=== PATIENT | male | born 1970 | race Caucasian/White ===

== ENCOUNTER 2016-10-06 17:12 | Emergency (ER) | payer MEDICAID ==
[2016-10-06 17:29] VITALS: PULSE 101
--- NOTE | 2016-10-06 17:48 | EDPHY ---
H & P Stated Complaint: 2 weeks of sore throat. getting worse - Personal History Current Tetanus/Diphtheria Vaccine: Yes Current Tetanus Diphtheria and Acellular Pertussis (TDAP): Yes - Medical/Surgical History Hx Asthma: Yes Hx Chronic Respiratory Disease: No Hx Diabetes: No Hx Cardiac Disease: No Hx Renal Disease: No Hx Cirrhosis: No Hx HIV/AIDS: Yes Hx Splenectomy or Spleen Trauma: No Other PMH: pmh:hiv, htn, asthma, liver fibrosis stage 2,. psh:choley, dental, tonsels - Social History Smoking Status: Never smoked Time Seen by Provider: 10/06/16 17:47 HPI/ROS: CHIEF COMPLAINT: Sore throat x2 weeks HISTORY OF PRESENT ILLNESS: 46-year-old HIV-positive male with undetectable viral load, recently moved from [place] to [place], complaining of sore throat x4 days. He notes antecedent nasal congestion and sore throat which he attributed to seasonal allergies/rhinitis and postnasal drainage. This has resolved however new symptoms started on . He has had no change in voice, no nuchal rigidity, no chest pain, no abdominal pain, no flank pain, no fever or chills, no dysphagia, no headache, no flu flu-like symptoms PRIMARY CARE PROVIDER: not established yet, will likely be following up the [facility] REVIEW OF SYSTEMS: A ten point review of systems was performed and is negative with the exception of the items mentioned in the HPI PAST MEDICAL & SURGICAL HISTORY: HIV positive, undetectable viral load SOCIAL HISTORY: Nonsmoker PHYSICAL EXAM (Prior to examination, patient consented to physical exam, hands were washed and my usual and customary physical exam procedures followed) 1) GENERAL: Well-developed, well-nourished, alert and oriented. Appears to be in no acute distress. Smiling, normal voice 2) HEAD: Normocephalic, atraumatic 3) HEENT: Pupils equal, round, reactive to light bilaterally. Sclera anicteric. Nasopharynx, oropharynx, clear, no lesions. Posterior oropharyngeal erythema with symmetrical non enlarged tonsils, no exudate. No hot potato voice. No trismus no drooling. no lesions. No thrush. Ears bilaterally with normal tympanic membranes. 4) NECK: Full range of motion, no meningeal signs. No submandibular or cervical adenopathy. 5) LUNGS: Clear auscultation bilaterally, no wheezes, no rhonchi, no retractions. 6) HEART: Regular rate and rhythm, no murmur, no heave, no gallop. 7) ABDOMEN: No guarding, no rebound, no focal tenderness, no splenomegaly , 8) MUSCULOSKELETAL: No peripheral edema or discoloration. 9) BACK: No CVA tenderness 10) SKIN: No rash, no petechiae. 11) Psychiatric: Patient is oriented X 3, there is no agitation. DIFFERENTIAL DIAGNOSIS: in no particular include but limited to strep pharyngitis, viral pharyngitis, postnasal drainage, peritonsillar abscess, retropharyngeal abscess, meningitis , mononucleosis (Marcus Dela Cruz) Constitutional: Initial Vital Signs Temperature (C) 36.5 C 10/06/16 17:25 Heart Rate 101 H 10/06/16 17:25 Respiratory Rate 16 10/06/16 17:25 Blood Pressure 142/101 H 10/06/16 17:25 O2 Sat (%) 96 10/06/16 17:25 O2 Delivery Mode Room Air Allergies/Adverse Reactions: Penicillins Allergy (Verified 10/06/16 17:29) Home Medications: Medication Instructions Recorded AZITHROMYCIN [Z-PACK] 500 mg PO DAILY #5 10/06/16 Emtricitab/Rilpiviri/Tenof Ala 1 each PO 10/06/16 [Odefsey Tablet] Lamotrigine 10/06/16 Lisinopril 10/06/16 Wellbutrin 100mg (*) 10/06/16 Medical Decision Making ED Course/Re-evaluation: This this is HIV positive undetectable viral load patient appears well, he has no evidence of thrush, doubt peritonsillar abscess, doubt meningitis. He is penicillin allergic. Will prescribe him clindamycin and recommend close follow- up with both ENT and with [facility]. Usual customary pharyngitis precautions and instructions provided. Care and management in consultation with secondary supervising physician Dr Kimball . (Marcus Dela Cruz) I did not see this patient while he was in the emergency department. However his care was discussed with the PA while patient was in the department. I agree with treatment plan and management (Mynor Kimball) - Data Points Laboratory Results: 10/06/16 10/06/16 Unknown 17:32 Group A Strep Screen NEGATIVE (NEGATIVE) Group A Strep DNA Pending Departure - Departure Disposition: Home, Routine, Self-Care Clinical Impression: Acute pharyngitis Qualifiers: Pharyngitis/tonsillitis etiology: unspecified etiology Qualified Code(s): J02.9 - Acute pharyngitis, unspecified Condition: Good Instructions: Pharyngitis (ED) Additional Instructions: Return to the ER immediately if you cannot swallow, have drooling, fevers, neck stiffness, cannot open your jaw, or any other symptoms that concern you. Referrals: Xuan Henriquez MD [Medical Doctor] - 1-2 days without fail (Dr. Xuan Henriquez is an ear nose and throat doctor) [facility] (ED,. [Edm Groups for Call Sched] - 5-7 days, call for appt. ( [facility] is infectious disease clinic) Prescriptions: AZITHROMYCIN [Z-PACK] 500 mg PO DAILY #5
[2016-10-06 19:34] VITALS: BP 120/78; RESP 13; TEMP 98.4; O2SAT 94
== END 2016-10-06 19:23 | disposition home or self-care (01) ==
DX: J02.9 Acute pharyngitis, unspecified (principal); I10 Essential (primary) hypertension; J45.909 Unspecified asthma, uncomplicated

== ENCOUNTER → 2017-07-03 | Outpatient (CLI) | payer MEDICAID | LOC: FIMAGING 08:10 | PROVIDERS: ATTEND Nurse Practitioner | DX: R94.5 Abnormal results of liver function studies (principal); Z90.49 Acquired absence of other specified parts of digestive tract ==

== ENCOUNTER 2017-08-31 11:08 | Emergency (ER) | payer MEDICAID ==
[2017-08-31 11:13] VITALS: BP 147/84
[2017-08-31] MEDS ORDERED: LIDOCAINE 4%/MENTHOL 1% PATCH TD ONE (11:40)
--- NOTE | 2017-08-31 11:45 | EDPHY ---
H & P Smoking Status: Never smoked Time Seen by Provider: 08/31/17 11:17 HPI/ROS: CHIEF COMPLAINT: Back pain HISTORY OF PRESENT ILLNESS: 47-year-old male presents to the emergency department with left low back pain. Symptoms began yesterday. 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 He was feeling some pain last night and then pain worsened this morning. He has pain especially with standing and walking. He denies any other known trauma or injury. He denies radicular symptoms in his legs. Denies numbness or tingling in his toes. Denies bowel or bladder incontinence. Denies chest pain or difficulty breathing. Denies abdominal pain. REVIEW OF SYSTEMS: Constitutional: No fever, no chills. Eyes: No double or blurry vision. ENT: No sore throat. Respiratory: No cough, no shortness of breath. Cardiac: No chest pain. Gastrointestinal: No abdominal pain, vomiting or diarrhea. Genitourinary: No dysuria. Musculoskeletal: Back pain as above. No neck pain. Skin: No rashes. Neurological: No headache. (Verena Sanders) Past Medical/Surgical History: HIV, asthma, liver fibrosis stage II, cholecystectomy, dental surgery, tonsillectomy (Verena Sanders) Social History: Single and lives in [place] (Verena Sanders) Physical Exam: General Appearance: Alert, no distress. Eyes: Pupils equal and round. Extraocular motions are all intact. ENT: Mouth: Mucous membranes moist. Respiratory: No wheezing, rhonchi, or rales, lungs are clear to auscultation. Cardiovascular: Regular rate and rhythm. Gastrointestinal: Abdomen is soft and nontender, no masses, no rebound or guarding, bowel sounds normal. Neurological: Alert and oriented x 3, cranial nerves II through XII grossly intact Skin: Warm and dry, no rashes. Musculoskeletal: Nontender to palpate along the cervical, thoracic or lumbar spine. Neck is supple. He does have mild pain with palpation to the left posterior aspect of the lumbar spine. No palpable crepitus or other bony abnormality. Extremities: Full range of motion and no peripheral edema. Straight leg raise is negative bilaterally. Full flexion and extension of his knees to his chest. Laterally bending to the left and right as well as twisting to the left and right causes some mild discomfort. He is able to do heel-toe walking. He is able to do a full deep knee bend without assistance. Psychiatric: Patient is oriented X 3, there is no agitation. (Verena Sanders) Constitutional: Initial Vital Signs Temperature (C) 36.8 C 08/31/17 11:10 Heart Rate 77 08/31/17 11:10 Respiratory Rate 20 08/31/17 11:10 Blood Pressure 147/84 H 08/31/17 11:10 O2 Sat (%) 95 08/31/17 11:10 O2 Delivery Mode Room Air Allergies/Adverse Reactions: Penicillins Allergy (Verified 08/31/17 11:10) Home Medications: Medication Instructions Recorded Emtricitab/Rilpiviri/Tenof Ala 1 each PO 10/06/16 [Odefsey Tablet] Lamotrigine 10/06/16 Lisinopril 10/06/16 Wellbutrin 100mg (*) 10/06/16 Cyclobenzaprine [Flexeril] 10 mg PO TIDPRN PRN #12 tab 08/31/17 methylPREDNISolone [Medrol Dose 1 each PO AD #0 ea 08/31/17 Juma] Medical Decision Making ED Course/Re-evaluation: 47-year-old male presents to the emergency department with severe left low back pain. I feel that his pain is likely musculoskeletal in nature. It is possible that he could have a herniated disc given his lifting history from moving the mattress yesterday, however I do not think MRI is indicated in the emergency department. He has no bowel or bladder incontinence. He is otherwise neurovascularly intact. Patient was given Lidoderm patch. He will be treated with Flexeril for muscular spasm as well as Medrol Dosepak. He was encouraged to have close follow-up with primary care provider. He will return if he develops increasing pain, numbness or tingling in his toes, or if he feels worse in any way. (Verena Sanders) I did not see this patient while he was in the emergency department. However his care was discussed with the PA while the patient was in the department. I agree with treatment plan and management (Mynor Kimball) Differential Diagnosis: Back pain including but not limited to muscular pain, herniated disc, spine fracture, intra-abdominal causes and urinary tract infection. (Verena Sanders) - Data Points Medications Given: Discontinued Medications Miscellaneous Medication (Icy Hot Lidocaine/Menthol 4%/1% Patch) 1 patch TD EDNOW ONE Stop: 08/31/17 11:41 Last Admin: 08/31/17 11:47 Dose: 1 patch Departure - Departure Disposition: Home, Routine, Self-Care Clinical Impression: Low back strain Condition: Good Instructions: Low Back Strain (ED) Additional Instructions: Lidocaine patches as directed. Please remove the patch after 12 hr. Flexeril as needed for muscular spasm. You may continue Aleve 2 tablets in the morning and 2 tablets in the evening as discussed. You should not be combining Aleve and ibuprofen together. Medrol Dosepak as needed for reducing inflammation. Referrals: Kiya Sahni, ESTRELLA [Primary Care Provider] - 2-3 days, call for appt. Prescriptions: Cyclobenzaprine [Flexeril] 10 mg PO TIDPRN PRN #12 tab PRN Reason: P.r.n. Spasms methylPREDNISolone [Medrol Dose Juma] 1 each PO AD #0 ea
[2017-08-31] MEDS ORDERED: PATCH REMOVAL 1 EA PATCH TD SCH (21:00)
== END 2017-08-31 12:00 | disposition home or self-care (01) ==
DX: S39.012A Strain of muscle, fascia and tendon of lower back, initial encounter (principal); B20 Human immunodeficiency virus [HIV] disease; J45.909 Unspecified asthma, uncomplicated; X50.9XXA Other and unspecified overexertion or strenuous movements or postures, initial encounter; Y99.8 Other external cause status; Y93.89 Activity, other specified

== ENCOUNTER → 2018-06-01 | Outpatient (CLI) | payer MEDICAID | LOC: FIMAGING 21:17 | PROVIDERS: ATTEND Nurse Practitioner | DX: J98.4 Other disorders of lung (principal) ==